=== PATIENT | male | born 1950 | race Caucasian/White ===

== ENCOUNTER → 2016-07-08 | Outpatient (CLI) | payer OTHER ==
[~2016-07-08] MED LIST: ALBUAER2 INH; ALLDSR60 PO; ATV1 PO; BENA10TA10 PO; BUPR-83 PO; CITRUCEL PO; DRV100 PO; FLVHFA110 INH; GABA-113 PO; NAPR-1169 PO; PRLSR20 PO; SAVELLA PO; SIMV10TA2 PO; [UNRECOGNIZED DRUG - CODE] PO
== END | disposition home or self-care (01) ==
LOC: C.CPL 11:30
DX: Z01.810 Encounter for preprocedural cardiovascular examination (principal)

== ENCOUNTER 2024-10-08 05:21 | Inpatient (IN) ==
--- NOTE | 2024-10-08 05:32 | Emergency Department Note ---
Impression & Plan Falls, Confusion, Abrasion of leg, Rhabdomyolysis ED Provider Note Provider: Julien Badillo MD CHIEF COMPLAINT: Falls, confusion, fever HISTORY OF PRESENT ILLNESS: Patient is a 79-year-old gentleman presenting via ambulance from home. Evidently has been more confused found to have a fever this morning. Has had multiple falls last several days but no reported significant injuries. Patient voices that his thinks he may have a urinary tract infection and has had burning and frequency here. Is not on blood thinners. Feels quite weak. States he feels like he needs to urinate and when he stands he falls. No history of UTIs. Reports a little bit of back pain but has chronic back pain and a TENS unit. Denies injury to extremities or chest pain or significant headache. He acknowledges feeling somewhat confused. Received 4 Zofran, 1 g of IV Tylenol, and 500 mL of normal saline prior to arrival for EMS. Was febrile for EMS at 101.7 Fahrenheit. EMS noted him saturating in the low 90s and placed on 2 L of oxygen by is not normally on oxygen. Denies shortness of breath to me. Patient does report some sinus congestion. PAST MEDICAL HISTORY: As noted above MEDICATIONS: Reviewed, no anticoagulants SOCIAL HISTORY: and lives at home PHYSICAL EXAM: GENERAL: alert and oriented in no acute distress on stretcher Head: normocephalic and atraumatic EYES: No injection, discharge or icterus. PERRL, EOMI. NECK: Trachea midline. Supple without midline cervical tenderness ENT: Mucous membranes pink and moist. LUNGS: Airway patent. No retractions. Breath sounds clear with good air entry bilaterally. HEART: Regular rate and rhythm. No chest wall tenderness ABDOMEN: Soft and non-tender, without guarding or rebound. Stable pelvis. SKIN: Acyanotic, warm, dry, without rashes EXTREMITIES: Without swelling, tenderness or deformity except for small abrasion to the right lower leg approximately centimeter in size with active bleeding or tenderness. Soft bilateral calves. No significant knee or ankle tenderness bilaterally. NEUROLOGICAL: No focal deficits. No aphasia. No facial droop or slurred speech. Normal strength and tone in the extremities. Sensation to gross touch normal. EK bpm. Normal sinus rhythm. No PVC or PAC. No acute ST segment elevation or depression with QTc of 420. CONTINUOUS CARDIAC MONITORING: was ordered and showed a heart rate of 90s to 100s bpm in normal sinus rhythm GCS 15. Patient's laboratory studies and imaging reviewed. Differential includes traumatic injury, fracture dislocation, cranial bleed, internal bleeding, viral syndrome, otitis, pharyngitis, pneumonia, influenza, meningitis, urinary tract infection, sepsis, bacteremia, as well as other pathologies. IMPRESSION/MEDICAL DECISION MAKING: Patient febrile upon arrival. ATLS primary and secondary survey completed. Multiple falls over the last day or so and generally weak but nonfocal on exam. Has been having incontinence as well as ambulatory difficulty. Sent for trauma scans given the multiple falls although do not see evidence of significant trauma on exam. There is a small abrasion to the right lower leg without active bleeding or foreign body. Grossly neurologically intact denies any numbness or tingling does not seem to have significant focal weakness and no symptoms reported in the lower extremities. History of chronic back issues. Lactate and culture ordered. UA ordered given history and concern for UTI. Given a gentle IV Zofran here as well as a liter of normal saline. Does not seem to have meningismus on exam and lower suspicion for [employer] infection at this time. Is febrile upon arrival but decreasing from EMS report he did receive IV Tylenol for them just prior to arrival. Lactate here normal at 1.9. White blood cell count of 7.49. No anemia of significance. No critical electrolyte abnormalities although magnesium was mildly low. IV magnesium ordered. No significant renal dysfunction. No significant transaminitis. Procalcitonin 0.13. Troponin normal at 9. Respiratory viral panel completed given report of some sinus congestion. Straight cath obtained urine as he is having difficulty going in about 600 cc was obtained. He will need to be monitor for any recurrence/reaccumulation/possible retention. Anaplasmosis smear sent for completeness. Slight CK elevation likely from his falls and mild rhabdo and has received a liter and a half of IV fluid. CT head cervical spine per radiology medication cranial abnormality, fracture, or dislocation. CT chest abdomen pelvis per radiology without evidence of pneumonia, pneumothorax, rib fracture, intra-abdominal/pelvic bleeding, hydronephrosis, or obstructive findings. Updated patient as well as his with findings. Recommend further care here at the hospital. Covered empirically with cefepime and doxycycline. Hospitalist team was contacted. DIAGNOSIS: Falls, leg abrasion, confusion, rhabdomyolysis DISPOSITION: Hospitalist will evaluate Patient was agreeable with this plan. Past Med/Surg History Problem List (Updated 10/08/24 @ 07:45 by Julien Badillo M.D.) Rhabdomyolysis (Acute) Abrasion of leg (Acute) Confusion (Acute) Falls (Acute) History of diverticulosis History of squamous cell carcinoma in situ of skin History of basal cell carcinoma Anxiety and depression GERD (gastroesophageal reflux disease) Arthritis Hyperlipidemia Hypertension Folliculitis Pruritus Surgical History (Updated 01/19/20 @ 10:00 by Maryana Coy RN) H/O colonoscopy Status post Mohs surgery Family History (Updated 01/19/20 @ 10:01 by Maryana Coy RN) Mother Cancer Father Stroke Social History (Updated 01/19/20 @ 10:01 by Maryana Coy, RN) Smoking Status: Never smoker Do You Dip or Chew Tobacco: No; Hx Alcohol Use: No Hx Substance Use: No Preferred Language: Iranian marital status: How many Children do You have: 7 Feels Safe at Home: Yes Allergies Allergies Allergy/AdvReac Type Severity Reaction Status Date / Time Penicillins Allergy Unknown / Verified 07/06/24 14:40 prochlorperazine Allergy Unknown / Verified 07/06/24 14:40 Home Meds Home Medications Medication Instructions Recorded Confirmed aspirin 81 mg tablet,delayed 81 mg PO DAILY 10/01/18 07/06/24 release (Adult Low Dose Aspirin) celecoxib 200 mg capsule (Celebrex) 200 mg PO DAILY 10/01/18 07/06/24 cholecalciferol (vitamin D3) 50 2,000 units PO DAILY 10/01/18 07/06/24 mcg (2,000 unit) capsule gabapentin 800 mg tablet 800 mg PO QID 10/01/18 07/06/24 atorvastatin 40 mg tablet 40 mg PO DAILY 12/30/19 07/06/24 benazepril 20 mg tablet 20 mg PO DAILY 12/30/19 07/06/24 loratadine 10 mg tablet (Claritin) 10 mg PO DAILY 12/30/19 07/06/24 omeprazole 40 mg capsule,delayed 40 mg PO DAILYBB 12/30/19 07/06/24 release memantine 10 mg tablet 10 mg PO 12/06/21 07/06/24 triazolam 0.25 mg tablet 0.5 mg PO UD PRN Sleep 01/06/23 07/06/24 duloxetine 60 mg capsule,delayed 60 mg PO DAILY 05/29/23 07/06/24 release (Cymbalta) Previous Rx's Medication Instructions Recorded imiquimod 5 % topical cream packet 1 applic topical .COMPLEX #24 ea 10/01/24 Results & Data (ED) Vital Signs Vital Signs - 24 hr 10/08/24 05:15 10/08/24 05:28 10/08/24 05:32 Temperature 38.1 C H 38.1 C H Temperature Source Oral Oral Pulse Rate 93 H 101 H Pulse Rate [Apical] 82 Pulse Rhythm Regular Pulse Rhythm [Apical] Regular Pulse Strength Normal Pulse Strength [Apical] Normal Respiratory Rate 17 18 Respiratory Effort / Characteristics Non-Labored Non-Labored Respiratory Depth Normal Normal Respiratory Pattern Regular Regular Blood Pressure 100/79 Blood Pressure [Left Arm] 100/79 Blood Pressure Mean 86 Blood Pressure Mean [Left Arm] 86 Blood Pressure Position Sitting Blood Pressure Position [Left Arm] Sitting Pulse Oximetry 97 93 Oxygen Delivery Method Nasal Cannula Nasal Cannula Oxygen Flow Rate 2 2 Sepsis Recent Fever Within 48 Hours Yes Sepsis New/Unexplained Change in Mental Status Yes Sepsis Action Taken by Nursing Physician Notified 10/08/24 05:51 10/08/24 06:15 10/08/24 07:00 Temperature Temperature Source Pulse Rate 100 H Pulse Rate [Apical] 85 85 Pulse Rhythm Pulse Rhythm [Apical] Regular Pulse Strength Pulse Strength [Apical] Normal Respiratory Rate 19 17 19 Respiratory Effort / Characteristics Non-Labored Non-Labored Respiratory Depth Normal Normal Respiratory Pattern Regular Blood Pressure Blood Pressure [Left Arm] 146/89 H 159/94 H Blood Pressure Mean Blood Pressure Mean [Left Arm] 108 115 Blood Pressure Position Blood Pressure Position [Left Arm] Lying Pulse Oximetry 97 97 96 Oxygen Delivery Method Nasal Cannula Nasal Cannula Nasal Cannula Oxygen Flow Rate 2 2 2 Sepsis Recent Fever Within 48 Hours Sepsis New/Unexplained Change in Mental Status Sepsis Action Taken by Nursing Laboratory Data 10/08/24 05:34 10/08/24 05:34 Lab Results 10/08/24 10/08/24 10/08/24 Range/Units 05:34 05:41 06:29 WBC 7.49 (4.8-10.8) K/ul RBC 4.74 (4.70-6.10) M/uL Hgb 14.0 (14.0-18.0) g/dl POC Hgb 13.9 L (14.0-18.0) g/dl Hct 40.8 L (42.0-52.0) % POC Hct 41 L (42-52) % MCV 86.1 (80.0-100.0) fL MCH 29.5 (25.0-34.0) pg MCHC 34.3 (32.0-36.0) g/dL RDW Std Deviation 40.3 (36.4-46.3) fL RDW Coeff of Néstor 13.0 (11.5-14.5) % Plt Count 151 (130-400) K/uL MPV 9.6 (9.4-12.4) fL Immature Gran % (Auto) 0.3 % Neut % (Auto) 76.1 % Lymph % (Auto) 12.8 % Cedar % (Auto) 10.4 % Eos % (Auto) 0.3 % Baso % (Auto) 0.1 % Neut # (Auto) 5.70 (1.40-6.50) K/uL Lymph # (Auto) 0.96 L (1.20-3.40) K/uL Cedar # (Auto) 0.78 H (0.11-0.59) K/uL Eos # (Auto) 0.02 (0.00-0.50) K/uL Baso # (Auto) 0.01 (0.00-0.20) K/uL Immature Gran # (Auto) 0.02 (0.01-0.20) K/uL POC Sodium 136 (135-144) mmol/L Sodium 135 L (136-145) mmol/L POC Potassium 3.4 (3.3-5.0) mmol/L Potassium 3.5 (3.5-5.1) mmol/L POC Chloride 101 (101-112) mmol/L Chloride 103 (98-107) mmol/L Carbon Dioxide 24 (21-32) mmol/L POC Total CO2 22 L (24-31) mmol/L Anion Gap 8 (3-11) POC Anion Gap 16.0 (16-25) mmol/L POC BUN 6 L (7-18) mg/dl BUN 8 (6-23) mg/dl Creatinine 0.95 (0.6-1.4) mg/dl POC Creatinine 1.0 (0.6-1.3) mg/dl Est Cr Clr Drug Dosing 92.5 ml/min eGFR 85.57 BUN/Creatinine Ratio 8.4 L (10-20) Glucose 121 H (70-99(Fasting)) mg/dl POC Glucose (other) 122 H (70-99) mg/dl Lactate 1.9 (0.4-2.0) mmol/L Calcium 8.7 (8.6-10.3) mg/dl POC Ioniz Calcium Ezekiel 1.13 (1.12-1.32) mmol/l Magnesium 1.6 L (1.7-2.4) mg/dl Total Bilirubin 0.5 (0.2-1.0) mg/dl AST 42 H (13-39) U/L ALT 33 (7-52) U/L Alkaline Phosphatase 53 (34-104) U/L Total Creatine Kinase 974 H (30-223) U/L Troponin I High Sens 9.0 (0-20) pg/ml Total Protein 6.2 (6.0-8.3) gm/dl Albumin 4.0 (3.4-5.0) gm/dl Globulin 2.2 L (2.5-4.0) gm/dl Albumin/Globulin Ratio 1.8 (0.9-2) Lipase 12 (11-82) U/L Procalcitonin 0.13 (0-0.5) ng/ml Urine Color Yellow Urine Appearance Clear (Clear) Urine pH 7.0 (4.5-7.5) Ur Specific [place] 1.036 H (1.000-1.030) Urine Protein Negative (Negative) Urine Glucose (UA) Negative (Negative) Urine Ketones Negative (Negative) Urine Blood Negative (Negative) Urine Nitrite Negative (Negative) Urine Bilirubin Negative (Negative) Urine Urobilinogen Negative (Negative) Ur Leukocyte Esterase Negative (Negative) Urine Comment Administered Medications Discontinued Medications Sodium Chloride (Nss) 1,000 mls @ 999 mls/hr IV .Q1H1M ONE Stop: 10/08/24 06:25 Last Infusion: 10/08/24 06:45 Dose: Infused Documented By: Admin: 10/08/24 05:40 Dose: 999 mls/hr Documented By: JAMES Magnesium Sulfate/Dextrose (Magnesium Sulfate / D5w) 1 gm in 100 mls @ 200 mls/hr IV Q30M ANA Stop: 10/08/24 07:29 Last Admin: 10/08/24 06:55 Dose: 200 mls/hr Documented By: Infusion: 10/08/24 06:54 Dose: Infused Documented By: Admin: 10/08/24 06:25 Dose: 200 mls/hr Documented By: TERESA Ioversol (Optiray 320 100ml) 100 ml IV ONCE ONE Stop: 10/08/24 06:07 Last Admin: 10/08/24 06:06 Dose: 93 ml Documented By: ZULY Ondansetron HCl (Ondansetron Inj 2 Mg/Ml 2 Ml Vial) 4 mg IV NOW STA Stop: 10/08/24 05:32 Last Admin: 10/08/24 05:40 Dose: 4 mg Documented By: JAMES Imaging Data Radiologist's Impression: Abdomen/Pelvis CT 10/08/24 05:23 EXAM: CT abd pelvis IV con only CLINICAL HISTORY: fever, falls TECHNIQUE: Contiguous axial images were obtained from the level of the diaphragm to the pubic symphysis with intravenous contrast. Coronal and sagittal reconstructions were likewise performed and indicated to increase the sensitivity for detecting clinically relevant pathology. If IV contrast material had not been administered, the likelihood of detecting abnormalities relevant to the patient's condition would have been substantially decreased. CT scan was performed according to ALARA (as low as reasonable achievable). COMPARISON: None. FINDINGS: The visualized lung bases are clear. The liver is normal in size and reduced attenuation. No focal liver lesions are seen. There is no intra or extrahepatic biliary ductal dilatation. Hepatic vasculature is patent. The gallbladder is present. The spleen, pancreas, and adrenal glands are unremarkable. The kidneys are normal in size and attenuation. There is no hydronephrosis or perinephric fat stranding. No renal calculi or renal masses are identified. The ureters are normal in caliber and no ureteral calculi are seen. The bladder is normal in contour. Pelvic viscera are unremarkable. No focal or diffuse bowel wall thickening or evidence of bowel obstruction is identified. The appendix is visualized in the right lower quadrant and appears within normal limits. Abdominal and pelvic vasculature is patent. No adenopathy or fluid collections are seen. No aggressive appearing osseous lesions are identified. Multiple small uncomplicated descending and sigmoid colonic diverticulosis Diffuse atherosclerotic calcification is noted involving aorta iliac arteries. IMPRESSION: Hepatic steatosis. Multiple small uncomplicated descending and sigmoid colonic diverticulosis Diffuse atherosclerotic calcification is noted involving aorta iliac arteries. Electronically signed by Willie Zamora 10-08-2024 07:[address] 10/08/24 05:23 EXAM: CT cervical spine wo con CLINICAL HISTORY: falls TECHNIQUE: Computed tomography of the cervical spine performed without intravenous contrast. Contiguous axial images were obtained from the skull base to T2, with sagittal and coronal reformatted images reconstructed from the axial data. CT scan was performed according to ALARA (as low as reasonable achievable). COMPARISON: none FINDINGS: The normal cervical lordotic curvature is lost. Degenerative changes in the form of marginal osteophytes in cervical spine. Cervical vertebral bodies are normal in height and alignment, with no evidence of fracture or subluxation. Lateral masses of C1 are symmetrical, and the dens is intact. Prevertebral soft tissues are not widened. The remaining suprahyoid and infrahyoid soft tissues in the neck are unremarkable. C2-C3: No disc bulge, mass effect on the cord or neuroforaminal narrowing. C3-C4: No disc bulge, mass effect on the cord or neuroforaminal narrowing. C4-C5: No disc bulge, mass effect on the cord or neuroforaminal narrowing. C5-C6: No disc bulge, mass effect on the cord or neuroforaminal narrowing. C6-C7: No disc bulge, mass effect on the cord or neuroforaminal narrowing. C7-T1: No disc bulge, mass effect on the cord or neuroforaminal narrowing. Thyroid gland appears unremarkable. IMPRESSION: 1.No acute fracture or subluxation in the cervical spine 2. Straightening of cervical spine and cervical spondylosis Electronically signed by Willie Zamora 10-08-2024 07:[address] 10/08/24 05:23 EXAM: CT chest diagnostic w con CLINICAL HISTORY: falls, fever TECHNIQUE: Contiguous axial images were obtained from the neck base through the upper abdomen following intravenous administration of contrast material. If IV contrast material had not been administered, the likelihood of detecting abnormalities relevant to the patient's condition would have been substantially decreased. In addition, sagittal and coronal reconstructions were performed. CT scan was performed according to ALARA (as low as reasonable achievable). COMPARISON: None. FINDINGS: Few atelectatic bands are noted involving bilateral lung bases. Rest of lungs are clear, with no focal areas of consolidation. No pulmonary nodules are seen. The central airways are patent. There are no pleural effusions. No pneumothorax is seen. No axillary, hilar, or mediastinal adenopathy is identified. The visualized thyroid is unremarkable. The heart, aorta, and pulmonary arteries are of normal size and configuration. No pericardial effusion is identified. Imaged portions of the upper abdomen are unremarkable. No aggressive appearing osseous lesions are identified. Spinal stimulator noted insitu with lead at the level of T8 and T9 vertebrae IMPRESSION: Few atelectatic bands are noted involving bilateral lung bases. No obvious acute trauma related abnormality is seen. Electronically signed by Willie Zamora 10-08-2024 07:36 AM Chest X-Ray 10/08/24 05:23 EXAM: XR chest 1V portable CLINICAL HISTORY: Fever TECHNIQUE: Radiograph of chest was acquired. COMPARISON: none FINDINGS: The lungs are clear and well-expanded with no pulmonary infiltrate or pleural effusion. The cardiomediastinal silhouette is within normal limits. No acute osseous abnormality. Spinal stimulator insitu in. mid thoracic level IMPRESSION: 1. No acute cardiopulmonary disease. Electronically signed by Willie Zamora 10-08-2024 07:[address] 10/08/24 05:23 EXAM: CT head/brain wo con CLINICAL HISTORY: falls TECHNIQUE: Multiple axial images are obtained from the skull base to the vertex without contrast. CT scan was performed according to ALARA (as low as reasonable achievable). COMPARISON: none FINDINGS: Chronic lacunar infarct in left capsuloganglionic region There is cerebral atrophy. No evidence of space occupying lesion, hemorrhage, edema, mass effect, midline shift, extra axial collection, or hydrocephalus is noted. Basal cisterns are symmetric and normal in size and configuration. There are scattered periventricular hypodensities as can be seen with chronic microvascular ischemic changes. The puente-white matter differentiation is preserved. Visualized paranasal sinuses and mastoid air cells are well aerated. Orbital contents are within normal limits. Bony structures are intact. IMPRESSION: 1. No evidence of acute intracranial abnormality is demonstrated. 2. Chronic microvascular ischemic changes. 3. Cerebral atrophy. 4. Chronic lacunar infarct in left capsuloganglionic region Electronically signed by Willie Zamora 10-08-2024 07:40 AM Discharge Plan Visit Data Chief Complaint: Urinary Symptoms Stated Complaint: Burning Urination, Confusion, Fever, Falls ED Provider: Julien Badillo Discharge Problem: Falls, Confusion, Abrasion of leg, Rhabdomyolysis Patient Disposition: Being Evaluated by Hospitalist Condition: Fair Forms Stand Alone Forms: My [facility] Prescriptions Prescriptions: No Action imiquimod 5 % cream in packet 1 applic topical .COMPLEX Qty: 24 1RF Rx Instructions: 1 applic topically to areas of the face twice weekly as directed.; celecoxib [Celebrex] 200 mg capsule 200 mg PO DAILY gabapentin 800 mg tablet 800 mg PO QID aspirin [Adult Low Dose Aspirin] 81 mg tablet,delayed release (DR/EC) 81 mg PO DAILY cholecalciferol (vitamin D3) 2,000 unit capsule 2,000 units PO DAILY triazolam 0.25 mg tablet 0.5 mg PO UD PRN (Reason: Sleep) memantine 10 mg tablet 10 mg PO duloxetine [Cymbalta] 60 mg capsule,delayed release(DR/EC) 60 mg PO DAILY atorvastatin 40 mg tablet 40 mg PO DAILY omeprazole 40 mg capsule,delayed release(DR/EC) 40 mg PO DAILYBB benazepril 20 mg tablet 20 mg PO DAILY loratadine [Claritin] 10 mg Tablet 10 mg PO DAILY Referrals Referrals: Cindy Schuster MD [Primary Care Provider] -
[2024-10-08] MEDS: ONDANSETRON INJ 2 MG/ML 2 ML VIAL IV STA (05:40)
[2024-10-08] MEDS: SODIUM CHLORIDE 0.9% 1,000 ML IV ONE (05:40)
[2024-10-08 06:00] LABS: Hematocrit (blood only) 40.8 % (42.0-52.0); Hemoglobin 14.0 g/dl (14.0-18.0); Immature Granulocytes # (auto) 0.02 K/uL (0.01-0.20); Immature Granulocytes % (auto) 0.3 %; Mean Corpuscular Hemoglobin 29.5 pg (25.0-34.0); Mean Corpuscular Volume 86.1 fL (80.0-100.0); Platelet Count 151 K/uL (130-400); RDW Standard Deviation 40.3 fL (36.4-46.3); Red Blood Count 4.74 M/uL (4.70-6.10); White Blood Count 7.49 K/ul (4.8-10.8)
[2024-10-08] MEDS: OPTIRAY 320 100ml IV ONE (06:06)
[2024-10-08 06:15] LABS: Alanine Aminotransferase 33.0 U/L (7-52); Albumin Globulin Ratio 1.8 (0.9-2); Alkaline Phosphatase 53.0 U/L (34-104); Anion Gap 8.0 (3-11); Bilirubin,Total 0.5 mg/dl (0.2-1.0); Blood Urea Nitrogen 8.0 mg/dl (6-23); Calcium 8.7 mg/dl (8.6-10.3); Carbon Dioxide 24.0 mmol/L (21-32); Chloride 103.0 mmol/L (98-107); Creatinine Clr Calc Pharmacy 92.5 ml/min; Globulin 2.2 gm/dl (2.5-4.0); Glucose 121.0 mg/dl (70-99(Fasting)); Magnesium 1.6 mg/dl (1.7-2.4); Potassium 3.5 mmol/L (3.5-5.1); Sodium 135.0 mmol/L (136-145); Total Protein 6.2 gm/dl (6.0-8.3)
[2024-10-08] MEDS: MAGNESIUM SULFATE / D5W 1 GM/100 ML BAG IV SCH (06:25)
--- NOTE | 2024-10-08 07:37 | CT Scan Report ---
EXAM: CT chest diagnostic w con CLINICAL HISTORY: falls, fever TECHNIQUE: Contiguous axial images were obtained from the neck base through the upper abdomen following intravenous administration of contrast material. If IV contrast material had not been administered, the likelihood of detecting abnormalities relevant to the patient's condition would have been substantially decreased. In addition, sagittal and coronal reconstructions were performed. CT scan was performed according to ALARA (as low as reasonable achievable). COMPARISON: None. FINDINGS: Few atelectatic bands are noted involving bilateral lung bases. Rest of lungs are clear, with no focal areas of consolidation. No pulmonary nodules are seen. The central airways are patent. There are no pleural effusions. No pneumothorax is seen. No axillary, hilar, or mediastinal adenopathy is identified. The visualized thyroid is unremarkable. The heart, aorta, and pulmonary arteries are of normal size and configuration. No pericardial effusion is identified. Imaged portions of the upper abdomen are unremarkable. No aggressive appearing osseous lesions are identified. Spinal stimulator noted insitu with lead at the level of T8 and T9 vertebrae IMPRESSION: Few atelectatic bands are noted involving bilateral lung bases. No obvious acute trauma related abnormality is seen. Electronically signed by Willie Zamora 10-08-2024 07:36 AM
--- NOTE | 2024-10-08 07:39 | CT Scan Report ---
EXAM: CT abd pelvis IV con only CLINICAL HISTORY: fever, falls TECHNIQUE: Contiguous axial images were obtained from the level of the diaphragm to the pubic symphysis with intravenous contrast. Coronal and sagittal reconstructions were likewise performed and indicated to increase the sensitivity for detecting clinically relevant pathology. If IV contrast material had not been administered, the likelihood of detecting abnormalities relevant to the patient's condition would have been substantially decreased. CT scan was performed according to ALARA (as low as reasonable achievable). COMPARISON: None. FINDINGS: The visualized lung bases are clear. The liver is normal in size and reduced attenuation. No focal liver lesions are seen. There is no intra or extrahepatic biliary ductal dilatation. Hepatic vasculature is patent. The gallbladder is present. The spleen, pancreas, and adrenal glands are unremarkable. The kidneys are normal in size and attenuation. There is no hydronephrosis or perinephric fat stranding. No renal calculi or renal masses are identified. The ureters are normal in caliber and no ureteral calculi are seen. The bladder is normal in contour. Pelvic viscera are unremarkable. No focal or diffuse bowel wall thickening or evidence of bowel obstruction is identified. The appendix is visualized in the right lower quadrant and appears within normal limits. Abdominal and pelvic vasculature is patent. No adenopathy or fluid collections are seen. No aggressive appearing osseous lesions are identified. Multiple small uncomplicated descending and sigmoid colonic diverticulosis Diffuse atherosclerotic calcification is noted involving aorta iliac arteries. IMPRESSION: Hepatic steatosis. Multiple small uncomplicated descending and sigmoid colonic diverticulosis Diffuse atherosclerotic calcification is noted involving aorta iliac arteries. Electronically signed by Willie Zamora 10-08-2024 07:39 AM
[2024-10-08 07:40] LABS: Creatine Kinase 974.0 U/L (30-223); Lipase 12.0 U/L (11-82)
--- NOTE | 2024-10-08 07:41 | CT Scan Report ---
EXAM: CT head/brain wo con CLINICAL HISTORY: falls TECHNIQUE: Multiple axial images are obtained from the skull base to the vertex without contrast. CT scan was performed according to ALARA (as low as reasonable achievable). COMPARISON: none FINDINGS: Chronic lacunar infarct in left capsuloganglionic region There is cerebral atrophy. No evidence of space occupying lesion, hemorrhage, edema, mass effect, midline shift, extra axial collection, or hydrocephalus is noted. Basal cisterns are symmetric and normal in size and configuration. There are scattered periventricular hypodensities as can be seen with chronic microvascular ischemic changes. The puente-white matter differentiation is preserved. Visualized paranasal sinuses and mastoid air cells are well aerated. Orbital contents are within normal limits. Bony structures are intact. IMPRESSION: 1. No evidence of acute intracranial abnormality is demonstrated. 2. Chronic microvascular ischemic changes. 3. Cerebral atrophy. 4. Chronic lacunar infarct in left capsuloganglionic region Electronically signed by Willie Zamora 10-08-2024 07:40 AM
[2024-10-08 07:42] LABS: Chlamydia pneumoniae PCR Not Detected (NotDetected); Coronavirus 229E PCR Not Detected (NotDetected); Coronavirus CoV-2 (COVID19)PCR DETECTED (NotDetected); Coronavirus HKU1 PCR Not Detected (NotDetected); Coronavirus NL63 PCR Not Detected (NotDetected); Coronavirus OC43PCR Not Detected (NotDetected); Human Metapneumovirus PCR Not Detected (NotDetected); Parainfluenza Virus 1 PCR Not Detected (NotDetected); Parainfluenza Virus 2 PCR Not Detected (NotDetected); Parainfluenza Virus 3 PCR Not Detected (NotDetected); Parainfluenza Virus 4 PCR Not Detected (NotDetected); Respiratory Syncytial VirusPCR Not Detected (NotDetected); Rhinovirus/Enterovirus PCR Not Detected (NotDetected)
--- NOTE | 2024-10-08 07:43 | CT Scan Report ---
EXAM: CT cervical spine wo con CLINICAL HISTORY: falls TECHNIQUE: Computed tomography of the cervical spine performed without intravenous contrast. Contiguous axial images were obtained from the skull base to T2, with sagittal and coronal reformatted images reconstructed from the axial data. CT scan was performed according to ALARA (as low as reasonable achievable). COMPARISON: none FINDINGS: The normal cervical lordotic curvature is lost. Degenerative changes in the form of marginal osteophytes in cervical spine. Cervical vertebral bodies are normal in height and alignment, with no evidence of fracture or subluxation. Lateral masses of C1 are symmetrical, and the dens is intact. Prevertebral soft tissues are not widened. The remaining suprahyoid and infrahyoid soft tissues in the neck are unremarkable. C2-C3: No disc bulge, mass effect on the cord or neuroforaminal narrowing. C3-C4: No disc bulge, mass effect on the cord or neuroforaminal narrowing. C4-C5: No disc bulge, mass effect on the cord or neuroforaminal narrowing. C5-C6: No disc bulge, mass effect on the cord or neuroforaminal narrowing. C6-C7: No disc bulge, mass effect on the cord or neuroforaminal narrowing. C7-T1: No disc bulge, mass effect on the cord or neuroforaminal narrowing. Thyroid gland appears unremarkable. IMPRESSION: 1.No acute fracture or subluxation in the cervical spine 2. Straightening of cervical spine and cervical spondylosis Electronically signed by Willie Zamora 10-08-2024 07:43 AM
[2024-10-08 07:44] LABS: Appearance Urine Clear (Clear); Glucose Urine UA Negative (Negative)
--- NOTE | 2024-10-08 07:46 | XRay Report ---
EXAM: XR chest 1V portable CLINICAL HISTORY: Fever TECHNIQUE: Radiograph of chest was acquired. COMPARISON: none FINDINGS: The lungs are clear and well-expanded with no pulmonary infiltrate or pleural effusion. The cardiomediastinal silhouette is within normal limits. No acute osseous abnormality. Spinal stimulator insitu in. mid thoracic level IMPRESSION: 1. No acute cardiopulmonary disease. Electronically signed by Willie Zamora 10-08-2024 07:45 AM
[2024-10-08] MEDS: DOXYCYCLINE HYCLATE 100 MG CAP PO STA (08:05)
[2024-10-08] MEDS: CEFEPIME 2000MG 2,000 MG/20 ML SYR IV STA (08:05)
[2024-10-08 10:07] LABS: Polychromasia 1+
--- NOTE | 2024-10-08 10:31 | History & Physical Report ---
Date of Service October 08, 2024 Assessment & Plan (1) COVID-19 virus infection: Plan: Admit to Med/Surg Patient presenting from home for evaluation of fever, falls, and confusion. In the ED, tested + COVID 19. Was on 2L at the time of my exam however I placed the patient on room air and he remained > 94% No infiltrate on CXR Given patient's risk factors, will start Remdesivir. Discussed with patient who is agreeable. Will hold on Dexamethasone for now (2) Metabolic encephalopathy: Plan: Due to COVID [address] negative for acute findings Seems to be close to baseline mental status PT/OT (3) Rhabdomyolysis: Plan: CPK 974 IVF, trend CPK level Renal functions normal. AST mildly elevated 42, other LFTs unremarkable (4) Fever: Plan: Likely due to COVID 19 infection UA negative Blood cultures pending Lyme negative Anaplasma/Babesia smear negative, PCR pending s/p Cefepime and Doxy in the ED, will hold on further antibiotics for now (5) History of CVA (cerebrovascular accident): Plan: Head shows evidence of chronic lacunar infarct - patient denies known prior history of CVA Continue CHUCK BONER ASA, holding statin due to mild rhabdo/remdesvir (6) Hypertension: Plan: Continue CHUCK BONER benazepril (7) Chronic back pain: (8) Peripheral nerve neurostimulator device in situ: Plan: Continue CHUCK BONER duloxetine, gabapentin, oxcarbazepine (9) GERD (gastroesophageal reflux disease): Plan: Continue PPI DVT PROPHYLAXIS SQ Lovenox Patient seen in collaboration with Dr. Sullivan. I spent a total of 75 minutes coordinating, documenting, and providing care for this patient excluding time spent in the performance of separately billed services. This included personally reviewing all current laboratories and imagi ng studies, medication reconciliation, outpatient chart review, and discussion with specialists. History of Present Illness Chief Complaint: Fever, Confusion, Falls Primary Care Provider: Cindy Schuster MD 73 year old male with PMH HTN, chronic back pain with neurostimulator in place, GERD, anxiety, depression, essential tremor, and other problems listed below who presents to the ED for evaluation of fever, confusion, and recurrent falls. Patient's is at the bedside who has history. Patient started to develop symptoms a couple of days ago. Reports cold-like symptoms with nasal congestion, sore throat, productive cough. reports patient has been agitated and confused and very weak and has had several falls. EMS was called at this morning and patient was found to be febrile. Patient was brought to the ED for further evaluation. Patient reports a poor appetite however denies abdominal pain, nausea, vomiting, diarrhea. No urinary symptoms. Denies chest pain, shortness of breath, lightheadedness, dizziness, diaphoresis, syncopal event. No recent travel or sick contacts. In the ED, patient is febrile at 38.1 and tested positive for COVID-19. CPK 974. Patient was on 2 L at the time my exam however I placed him on room air and he remained > 94% on room air. Patient was given cefepime, doxycycline, magnesium replacement, IVF, IV Zofran. Allergies Allergy/AdvReac Type Severity Reaction Status Date / Time Penicillins Allergy Unknown / Verified 07/06/24 14:40 prochlorperazine Allergy Unknown / Verified 07/06/24 14:40 Home Medications Medication Instructions Recorded Confirmed Type aspirin 81 mg tablet,delayed 81 mg PO DAILY 10/01/18 10/08/24 History release (Adult Low Dose Aspirin) cholecalciferol (vitamin D3) 50 2,000 units PO DAILY 10/01/18 10/08/24 History mcg (2,000 unit) capsule gabapentin 800 mg tablet 800 mg PO QID 10/01/18 10/08/24 History atorvastatin 40 mg tablet 40 mg PO DAILY 12/30/19 10/08/24 History benazepril 20 mg tablet 20 mg PO DAILY 12/30/19 10/08/24 History loratadine 10 mg tablet (Claritin) 10 mg PO DAILY 12/30/19 10/08/24 History omeprazole 40 mg capsule,delayed 40 mg PO BID 12/30/19 10/08/24 History release memantine 10 mg tablet 10 mg PO BID 12/06/21 10/08/24 History triazolam 0.25 mg tablet 0.5 mg PO UD PRN Sleep 01/06/23 10/08/24 History duloxetine 60 mg capsule,delayed 60 mg PO DAILY 05/29/23 10/08/24 History release (Cymbalta) fluticasone propionate 50 1 spray intranasal DIRECTED 10/08/24 10/08/24 History mcg/actuation nasal spray,suspension imiquimod 5 % topical cream packet 1 applic topical UD 10/08/24 10/08/24 History oxcarbazepine 300 mg tablet 300 mg PO BID 10/08/24 10/08/24 History propranolol 10 mg tablet 10 mg PO DAILY 10/08/24 10/08/24 History Past Med/Surg History Problem List (Updated 10/08/24 @ 10:36 by SOSA Mayo) Fever Metabolic encephalopathy COVID-19 virus infection Rhabdomyolysis (Acute) History of diverticulosis History of squamous cell carcinoma in situ of skin History of basal cell carcinoma Anxiety and depression GERD (gastroesophageal reflux disease) Arthritis Hyperlipidemia Folliculitis Pruritus Medical History (Updated 10/08/24 @ 10:36 by SOSA Mayo) History of CVA (cerebrovascular accident) Hypertension Peripheral nerve neurostimulator device in situ Chronic back pain Surgical History (Updated 01/19/20 @ 10:00 by Maryana Coy, RN) H/O colonoscopy Status post Mohs surgery Family History (Updated 01/19/20 @ 10:01 by Maryana Coy, RN) Mother Cancer Father Stroke Social History (Updated 01/19/20 @ 10:01 by Maryana Coy, RN) Smoking Status: Never smoker Do You Dip or Chew Tobacco: No; Hx Alcohol Use: No Hx Substance Use: No Preferred Language: [place] marital status: How many Children do You have: 7 Feels Safe at Home: Yes Physical Exam Constitutional: WD/WN, vitals as above + ill appearing; no acute distress Respiratory: normal respiratory effort, lungs clear to auscultation Cardiovascular: Rate/Rhythm: regular rate and regular rhythm Vessels: normal peripheral pulses Extremities: no edema Gastrointestinal (Abdomen): Percussion/Palpation: abdomen soft; abdomen nontender Skin: no rashes, warm and dry Neurologic: no focal motor deficits Psychiatric: A+Ox3, euthymic affect Results & Data Results & Data Vital Signs (Past 12 Hours) Vital Signs Temp Pulse Pulse Resp BP BP Pulse Ox 10/08/24 09:38 82 10/08/24 07:00 85 19 159/94 H 96 10/08/24 06:15 85 17 146/89 H 97 10/08/24 05:51 100 H 19 97 10/08/24 05:32 38.1 C H 101 H 18 100/79 93 10/08/24 05:28 93 H 10/08/24 05:15 38.1 C H 82 17 100/79 97 O2 Del Method O2 Flow Rate 10/08/24 09:38 10/08/24 07:00 Nasal Cannula 2 10/08/24 06:15 Nasal Cannula 2 10/08/24 05:51 Nasal Cannula 2 10/08/24 05:32 Nasal Cannula 2 10/08/24 05:28 10/08/24 05:15 Nasal Cannula 2 Laboratory Results Short CBC 10/08/24 Range/Units 05:34 WBC 7.49 (4.8-10.8) K/ul Hgb 14.0 (14.0-18.0) g/dl Hct 40.8 L (42.0-52.0) % Plt Count 151 (130-400) K/uL BMP 10/08/24 05:34 Sodium 135 L Potassium 3.5 Chloride 103 Carbon Dioxide 24 BUN 8 Creatinine 0.95 Glucose 121 H Calcium 8.7 Cardiac Enzymes 10/08/24 Range/Units 05:34 Total Creatine Kinase 974 H (30-223) U/L Liver Function 10/08/24 Range/Units 05:34 Total Bilirubin 0.5 (0.2-1.0) mg/dl AST 42 H (13-39) U/L ALT 33 (7-52) U/L Alkaline Phosphatase 53 (34-104) U/L Albumin 4.0 (3.4-5.0) gm/dl Urine 10/08/24 Range/Units 06:29 Urine Color Yellow Urine Appearance Clear (Clear) Urine pH 7.0 (4.5-7.5) Ur Specific [place] 1.036 H (1.000-1.030) Urine Protein Negative (Negative) Urine Glucose (UA) Negative (Negative) Diagnostic Findings Abdomen/Pelvis CT 10/08/24 05:23 EXAM: CT abd pelvis IV con only CLINICAL HISTORY: fever, falls TECHNIQUE: Contiguous axial images were obtained from the level of the diaphragm to the pubic symphysis with intravenous contrast. Coronal and sagittal reconstructions were likewise performed and indicated to increase the sensitivity for detecting clinically relevant pathology. If IV contrast material had not been administered, the likelihood of detecting abnormalities relevant to the patient's condition would have been substantially decreased. CT scan was performed according to ALARA (as low as reasonable achievable). COMPARISON: None. FINDINGS: The visualized lung bases are clear. The liver is normal in size and reduced attenuation. No focal liver lesions are seen. There is no intra or extrahepatic biliary ductal dilatation. Hepatic vasculature is patent. The gallbladder is present. The spleen, pancreas, and adrenal glands are unremarkable. The kidneys are normal in size and attenuation. There is no hydronephrosis or perinephric fat stranding. No renal calculi or renal masses are identified. The ureters are normal in caliber and no ureteral calculi are seen. The bladder is normal in contour. Pelvic viscera are unremarkable. No focal or diffuse bowel wall thickening or evidence of bowel obstruction is identified. The appendix is visualized in the right lower quadrant and appears within normal limits. Abdominal and pelvic vasculature is patent. No adenopathy or fluid collections are seen. No aggressive appearing osseous lesions are identified. Multiple small uncomplicated descending and sigmoid colonic diverticulosis Diffuse atherosclerotic calcification is noted involving aorta iliac arteries. IMPRESSION: Hepatic steatosis. Multiple small uncomplicated descending and sigmoid colonic diverticulosis Diffuse atherosclerotic calcification is noted involving aorta iliac arteries. Electronically signed by Willie Zamora 10-08-2024 07:[address] 10/08/24 05:23 EXAM: CT cervical spine wo con CLINICAL HISTORY: falls TECHNIQUE: Computed tomography of the cervical spine performed without intravenous contrast. Contiguous axial images were obtained from the skull base to T2, with sagittal and coronal reformatted images reconstructed from the axial data. CT scan was performed according to ALARA (as low as reasonable achievable). COMPARISON: none FINDINGS: The normal cervical lordotic curvature is lost. Degenerative changes in the form of marginal osteophytes in cervical spine. Cervical vertebral bodies are normal in height and alignment, with no evidence of fracture or subluxation. Lateral masses of C1 are symmetrical, and the dens is intact. Prevertebral soft tissues are not widened. The remaining suprahyoid and infrahyoid soft tissues in the neck are unremarkable. C2-C3: No disc bulge, mass effect on the cord or neuroforaminal narrowing. C3-C4: No disc bulge, mass effect on the cord or neuroforaminal narrowing. C4-C5: No disc bulge, mass effect on the cord or neuroforaminal narrowing. C5-C6: No disc bulge, mass effect on the cord or neuroforaminal narrowing. C6-C7: No disc bulge, mass effect on the cord or neuroforaminal narrowing. C7-T1: No disc bulge, mass effect on the cord or neuroforaminal narrowing. Thyroid gland appears unremarkable. IMPRESSION: 1.No acute fracture or subluxation in the cervical spine 2. Straightening of cervical spine and cervical spondylosis Electronically signed by Willie Zamora 10-08-2024 07:[address] 10/08/24 05:23 EXAM: CT chest diagnostic w con CLINICAL HISTORY: falls, fever TECHNIQUE: Contiguous axial images were obtained from the neck base through the upper abdomen following intravenous administration of contrast material. If IV contrast material had not been administered, the likelihood of detecting abnormalities relevant to the patient's condition would have been substantially decreased. In addition, sagittal and coronal reconstructions were performed. CT scan was performed according to ALARA (as low as reasonable achievable). COMPARISON: None. FINDINGS: Few atelectatic bands are noted involving bilateral lung bases. Rest of lungs are clear, with no focal areas of consolidation. No pulmonary nodules are seen. The central airways are patent. There are no pleural effusions. No pneumothorax is seen. No axillary, hilar, or mediastinal adenopathy is identified. The visualized thyroid is unremarkable. The heart, aorta, and pulmonary arteries are of normal size and configuration. No pericardial effusion is identified. Imaged portions of the upper abdomen are unremarkable. No aggressive appearing osseous lesions are identified. Spinal stimulator noted insitu with lead at the level of T8 and T9 vertebrae IMPRESSION: Few atelectatic bands are noted involving bilateral lung bases. No obvious acute trauma related abnormality is seen. Electronically signed by Willie Zamora 10-08-2024 07:36 AM Chest X-Ray 10/08/24 05:23 EXAM: XR chest 1V portable CLINICAL HISTORY: Fever TECHNIQUE: Radiograph of chest was acquired. COMPARISON: none FINDINGS: The lungs are clear and well-expanded with no pulmonary infiltrate or pleural effusion. The cardiomediastinal silhouette is within normal limits. No acute osseous abnormality. Spinal stimulator insitu in. mid thoracic level IMPRESSION: 1. No acute cardiopulmonary disease. Electronically signed by Willie Zamora 10-08-2024 07:[address] 10/08/24 05:23 EXAM: CT head/brain wo con CLINICAL HISTORY: falls TECHNIQUE: Multiple axial images are obtained from the skull base to the vertex without contrast. CT scan was performed according to ALARA (as low as reasonable achievable). COMPARISON: none FINDINGS: Chronic lacunar infarct in left capsuloganglionic region There is cerebral atrophy. No evidence of space occupying lesion, hemorrhage, edema, mass effect, midline shift, extra axial collection, or hydrocephalus is noted. Basal cisterns are symmetric and normal in size and configuration. There are scattered periventricular hypodensities as can be seen with chronic microvascular ischemic changes. The puente-white matter differentiation is preserved. Visualized paranasal sinuses and mastoid air cells are well aerated. Orbital contents are within normal limits. Bony structures are intact. IMPRESSION: 1. No evidence of acute intracranial abnormality is demonstrated. 2. Chronic microvascular ischemic changes. 3. Cerebral atrophy. 4. Chronic lacunar infarct in left capsuloganglionic region Electronically signed by Willie Zamora 10-08-2024 07:40 AM Code Status & VTE Plan VTE Prophylaxis Plan VTE Prophylaxis will be ordered: Yes Supervising Physician Co-Signing Physician Notes Patient seen, laying comfortably in the room. Recurrent falls at home, fevers, poor appetite. Febrile, tachycardic, on 2L NC. COVID positive, chest xray unremarkable. Mg 1.6, WBC 7.5. CK of 974 in setting of frequent falls. Likely COVID induced weakness and falls. CK elevation likely in setting of falls. Remdesevir given high risk given comorbid conditions and age. Hold decadron for now unless increased oxygen requirements. Give gentle fluids for CK elevation. Mg replenished. I have seen and discussed the case with the collaborating advanced practitioner. I agree with the above H&P. I have reviewed and confirmed the patients medical history, the findings on physical examination, and the patients diagnosis and treatment plan with Alessandra SWAN and agree with the information documented. I spent a total of 30 minutes coordinating, documenting, and providing care for this patient excluding time spent in the performance of separately billed services. All of the aforementioned completed outside of collaborating with the assigned advanced practitioner for a full treatment plan. I have reviewed the advanced practitioner's documentation, and I agree with, and take responsibility for the plan of care
[2024-10-08] MEDS ORDERED: ALBUT/IPRATROP 3MG/0.5MG NEB 3 ML VIAL NEB PRN (10:35)
[2024-10-08] MEDS: REMDESIVIR 200 MG in SODIUM CHLORIDE 0.9% 210 ML IV STA (10:39)
--- NOTE | 2024-10-08 11:25 | Electrocardiogram Report ---
Test Reason : Blood Pressure : */* mmHG Vent. Rate : 100 BPM Atrial Rate : 100 BPM P-R Int : 180 ms QRS Dur : 90 ms QT Int : 326 ms P-R-T Axes : 28 -11 20 degrees QTcB Int : 420 ms Normal sinus rhythm Poor R wave progression, consider anterior ID vs. lead placement vs. LVH Abnormal ECG When compared with ECG of 15-Aug-2023 11:44, No significant change was found Confirmed by Mario Le ([id number]) on 10/08/2024 11:25:35 AM Referred By: Confirmed By: Mario Le
[2024-10-08] MEDS: SODIUM CHLORIDE 0.9% 1,000 ML IV SCH (12:21)
[2024-10-08] MEDS: GABAPENTIN 800 MG TAB PO SCH (12:58)
[2024-10-08] MEDS: ENOXAPARIN INJ 40 MG/0.4 ML SYR SQ SCH (12:58)
[2024-10-08] MEDS: ACETAMINOPHEN 325 MG TAB PO PRN (15:34)
[2024-10-08] MEDS: MEMANTINE HCL 10 MG TAB PO SCH (20:43)
[2024-10-08] MEDS: LORazepam 0.5 MG TAB PO SCH (20:45)
[2024-10-09 07:30] LABS: Hematocrit (blood only) 35.3 % (42.0-52.0); Hemoglobin 12.1 g/dl (14.0-18.0); Mean Corpuscular Hemoglobin 29.9 pg (25.0-34.0); Mean Corpuscular Volume 87.2 fL (80.0-100.0); Platelet Count 140 K/uL (130-400); RDW Standard Deviation 42.4 fL (36.4-46.3); Red Blood Count 4.05 M/uL (4.70-6.10); White Blood Count 5.93 K/ul (4.8-10.8)
[2024-10-09 07:44] LABS: Anion Gap 7.0 (3-11); Blood Urea Nitrogen 8.0 mg/dl (6-23); Calcium 8.0 mg/dl (8.6-10.3); Carbon Dioxide 26.0 mmol/L (21-32); Chloride 104.0 mmol/L (98-107); Creatine Kinase 818.0 U/L (30-223); Creatinine Clr Calc Pharmacy 99.8 ml/min; Glucose 110.0 mg/dl (70-99(Fasting)); Magnesium 1.9 mg/dl (1.7-2.4); Potassium 3.2 mmol/L (3.5-5.1); Sodium 137.0 mmol/L (136-145)
[2024-10-09] MEDS: ENALAPRIL MALEATE 10 MG TAB PO SCH (08:59)
[2024-10-09] MEDS: PROPRANOLOL HCL 10 MG TAB PO SCH (09:00)
[2024-10-09] MEDS: LORATADINE 10 MG TAB PO SCH (09:00)
[2024-10-09] MEDS: ASPIRIN 81 MG ECTAB PO SCH (09:00)
[2024-10-09] MEDS: REMDESIVIR 100 MG in SODIUM CHLORIDE 0.9% 230 ML IV SCH (10:42)
[2024-10-09] MEDS: ADVANCED PROBIOTIC 625 MG CAPSULE PO SCH (12:10)
[2024-10-09] MEDS: POTASSIUM CHLORIDE CRTAB 20 MEQ TABCR PO STA (12:10)
[2024-10-09] MEDS: ALUMINUM/MAGNESIUM SUSP 30 ML UDC PO PRN (14:26)
--- NOTE | 2024-10-09 15:48 | Hospitalist Progress Note ---
Date of Service October 09, 2024 Assessment & Plan (1) COVID-19 virus infection: Plan: Admit to Med/Surg Patient presenting from home for evaluation of fever, falls, and confusion. In the ED, tested + COVID 19. Was on 2L at the time of my exam however I placed the patient on room air and he remained > 94% No infiltrate on CXR Given patient's risk factors, will start Remdesivir. Discussed with patient who is agreeable. 10/09 clinically improving Mental status back to baseline Afebrile On room air Still having productive cough Check sputum culture renal function stable, liver panel pending Continue IV remdesivir day #2 Add cefuroxime 500 mg twice daily for possible bacterial infection component, given patient's severe presentation monitor closely (2) Metabolic encephalopathy: Plan: Due to COVID [address] negative for acute findings Seems to be close to baseline mental status PT/OT 10/09 mostly back to baseline mental status (3) Rhabdomyolysis: Plan: CPK 974 IVF, trend CPK level Renal functions normal. AST mildly elevated 42, other LFTs unremarkable CPK trending down 974--> 818 continue IV fluids (4) Fever: Plan: Likely due to COVID 19 infection UA negative Blood cultures pending Lyme negative Anaplasma/Babesia smear negative, PCR pending 10/09 afebrile today Cefuroxime added today as per #1 (5) History of CVA (cerebrovascular accident): Plan: Head shows evidence of chronic lacunar infarct - patient denies known prior history of CVA Continue MEDICAL RECEPTIONIST BILLER ASA, holding statin due to mild rhabdo/remdesvir (6) Hypertension: Plan: -- BP on the lower side hold Benazepril (7) Chronic back pain: (8) Peripheral nerve neurostimulator device in situ: Plan: Continue MEDICAL RECEPTIONIST BILLER duloxetine, gabapentin, oxcarbazepine (9) GERD (gastroesophageal reflux disease): Plan: PPI changed to Famotidine for now in light of possible interaction with cefuroxime DVT PROPHYLAXIS SQ Lovenox Disposition Anticipate discharge to home in 1 to 2 days plan of care discussed with patient and hi Julianne at bedside in detail and at length all questions answered they are understanding, agreeable, comfortable with the plan of care Admission and Anticipated Discharge Date Admission Date: October 08, 2024 Subjective seen resting in bed, comfortable, oriented x 3, very pleasant Julianne at the bedside visiting States he feels much better compared to admission Patient's reports mental status is mostly back to baseline Denies shortness of breath, still has productive cough no chest pain, dizziness, palpitations No abdominal pain, diarrhea resolved No nausea, appetite is better No other new symptoms Review of Systems Review of Systems: all noted and negative except for above Physical Exam Physical Exam: General- oriented x 3, not in distress, speaks in sentences with no effort or accessory muscle use Eyes- anicteric Neck- no JVD Lungs- clear breath sounds bilaterally, no rales/wheezes Heart- normal rate, regular rhythm; no murmurs Abdomen- normal bowel sounds, nondistended, soft, nontender Extremities- no pretibial edema, no calf tenderness Neuro- alert, oriented x 3; no gross focal neurologic deficits Skin- warm & dry Results & Data Results & Data Vital Signs (Past 12 Hours) Vital Signs Temp Pulse Resp BP Pulse Ox O2 Del Method 10/09/24 15:08 36.8 C 70 16 98/63 L 92 Room Air 10/09/24 08:00 Room Air 10/09/24 08:00 36.8 C 72 18 115/88 97 Room Air all noted and reviewed including below
[2024-10-09] MEDS: TRIAZOLAM 0.25 MG PO SCH (20:32)
[2024-10-10 07:13] LABS: Hematocrit (blood only) 36.3 % (42.0-52.0); Hemoglobin 12.0 g/dl (14.0-18.0); Immature Granulocytes # (auto) 0.01 K/uL (0.01-0.20); Immature Granulocytes % (auto) 0.2 %; Mean Corpuscular Hemoglobin 29.2 pg (25.0-34.0); Mean Corpuscular Volume 88.3 fL (80.0-100.0); Platelet Count 142 K/uL (130-400); RDW Standard Deviation 42.4 fL (36.4-46.3); Red Blood Count 4.11 M/uL (4.70-6.10); White Blood Count 4.95 K/ul (4.8-10.8)
[2024-10-10 07:43] LABS: Alanine Aminotransferase 32.0 U/L (7-52); Albumin Globulin Ratio 1.6 (0.9-2); Alkaline Phosphatase 41.0 U/L (34-104); Anion Gap 6.0 (3-11); Bilirubin,Total 0.3 mg/dl (0.2-1.0); Blood Urea Nitrogen 9.0 mg/dl (6-23); Calcium 8.2 mg/dl (8.6-10.3); Carbon Dioxide 26.0 mmol/L (21-32); Chloride 107.0 mmol/L (98-107); Creatine Kinase 808.0 U/L (30-223); Creatinine Clr Calc Pharmacy 120.4 ml/min; Globulin 2.1 gm/dl (2.5-4.0); Glucose 98.0 mg/dl (70-99(Fasting)); Potassium 3.6 mmol/L (3.5-5.1); Sodium 139.0 mmol/L (136-145); Total Protein 5.4 gm/dl (6.0-8.3)
[2024-10-10 07:59] VITALS: RESP 16
--- NOTE | 2024-10-10 16:23 | Hospitalist Progress Note ---
Date of Service October 10, 2024 Assessment & Plan (1) COVID-19 virus infection: (2) Metabolic encephalopathy: (3) Rhabdomyolysis: (4) Fever: (5) History of CVA (cerebrovascular accident): (6) Hypertension: (7) Chronic back pain: (8) Peripheral nerve neurostimulator device in situ: (9) GERD (gastroesophageal reflux disease): Plan Mr. Peres is a 73 year old male with PMH HTN, chronic back pain with neurostimulator in place, GERD, anxiety, depression, essential tremor, and other problems listed below who presented to ED for fever and admitted for COVID infection and rhabdomyolysis Patient briefly with hypoxia, but resolved.Patient started on remdesivir with noted improvement. #COVID infection #Acute encephalopathy 2/2 above Mental status back to baseline Afebrile On room air sputum cx with normal stef Conpleted IV remdesivir day #3 continue cefuroxime 500 mg twice daily for possible bacterial infection component, given patient's severe presentation monitor closely #Rhabdomyolysis: CPK 974, downtrending IVF, trend CPK level Renal functions normal. 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, holding statin due to mild rhabdo/remdesvir #Hypertension: Plan: -- BP on the lower side hold Benazepril # Chronic back pain: #Peripheral nerve neurostimulator device in situ: Continue TRANSCRIPTION MANAGER duloxetine, gabapentin, oxcarbazepine # GERD (gastroesophageal reflux disease): PPI changed to Famotidine for now in light of possible interaction with cefuroxime DVT PROPHYLAXIS SQ Lovenox Disposition Anticipate discharge to home tomorrow Admission and Anticipated Discharge Date Admission Date: October 08, 2024 Results & Data Results & Data Vital Signs (Past 12 Hours) Vital Signs Temp Pulse Resp BP Pulse Ox O2 Del Method 10/10/24 15:30 36.7 C 67 16 156/75 H 94 Room Air 10/10/24 07:58 36.7 C 68 16 133/74 91 Room Air 10/10/24 07:45 Room Air Laboratory Results Short CBC 10/10/24 Range/Units 05:28 WBC 4.95 (4.8-10.8) K/ul Hgb 12.0 L (14.0-18.0) g/dl Hct 36.3 L (42.0-52.0) % Plt Count 142 (130-400) K/uL BMP 10/10/24 05:28 Sodium 139 Potassium 3.6 Chloride 107 Carbon Dioxide 26 BUN 9 Creatinine 0.73 Glucose 98 Calcium 8.2 L Cardiac Enzymes 10/10/24 Range/Units 05:28 Total Creatine Kinase 808 H (30-223) U/L Liver Function 10/10/24 Range/Units 05:28 Total Bilirubin 0.3 (0.2-1.0) mg/dl AST 44 H (13-39) U/L ALT 32 (7-52) U/L Alkaline Phosphatase 41 (34-104) U/L Albumin 3.3 L (3.4-5.0) gm/dl Medications Administered Home Medications Medication Instructions Recorded Confirmed Last Taken aspirin 81 mg tablet,delayed 81 mg PO DAILY 10/01/18 10/08/24 Unknown release (Adult Low Dose Aspirin) cholecalciferol (vitamin D3) 50 2,000 units PO DAILY 10/01/18 10/08/24 12/30/19 mcg (2,000 unit) capsule gabapentin 800 mg tablet 800 mg PO QID 10/01/18 10/08/24 Unknown atorvastatin 40 mg tablet 40 mg PO DAILY 12/30/19 10/08/24 Unknown benazepril 20 mg tablet 20 mg PO DAILY 12/30/19 10/08/24 12/30/19 loratadine 10 mg tablet (Claritin) 10 mg PO DAILY 12/30/19 10/08/24 12/30/19 omeprazole 40 mg capsule,delayed 40 mg PO BID 12/30/19 10/08/24 12/30/19 release memantine 10 mg tablet 10 mg PO BID 12/06/21 10/08/24 Unknown triazolam 0.25 mg tablet 0.5 mg PO UD PRN Sleep 01/06/23 10/08/24 Unknown duloxetine 60 mg capsule,delayed 60 mg PO DAILY 05/29/23 10/08/24 Unknown release (Cymbalta) fluticasone propionate 50 1 spray intranasal DIRECTED 10/08/24 10/08/24 Unknown mcg/actuation nasal spray,suspension imiquimod 5 % topical cream packet 1 applic topical UD 10/08/24 10/08/24 Unknown oxcarbazepine 300 mg tablet 300 mg PO BID 10/08/24 10/08/24 Unknown propranolol 10 mg tablet 10 mg PO DAILY 10/08/24 10/08/24 Unknown Active Medications Generic Name Dose Route Start Last Admin Trade Name Freq PRN Reason Stop Dose Admin Acetaminophen 650 mg 10/08/24 12:04 10/09/24 05:28 Acetaminophen 325 Mg Tab PO 11/07/24 12:03 650 mg Q4H PRN Administration pain/fever Al Hydrox/Mg Hydrox/Simethicone 30 ml 10/09/24 13:20 10/09/24 14:26 Aluminum/Magnesium Susp 30 Ml Udc PO 11/08/24 13:19 30 ml Q6H PRN Administration dyspepsia Aspirin 81 mg 10/09/24 09:00 10/10/24 09:25 Aspirin 81 Mg Ectab PO 11/08/24 08:59 81 mg DAILY ANA Administration Cefuroxime Axetil 500 mg 10/09/24 18:00 10/10/24 09:26 Cefuroxime Axetil 250 Mg Tablet PO 10/14/24 17:59 500 mg BIDM ANA Administration Duloxetine HCl 60 mg 10/09/24 09:00 10/10/24 09:25 Duloxetine Hcl 60 Mg Cap PO 11/08/24 08:59 60 mg DAILY ANA Administration Enalapril Maleate 10 mg 10/09/24 09:00 10/09/24 08:59 Enalapril Maleate 10 Mg Tab PO 11/08/24 08:59 10 mg DAILY ANA Administration Enoxaparin Sodium 40 mg 10/08/24 12:04 10/10/24 12:49 Enoxaparin Inj 40 Mg/0.4 Ml Syr SQ 11/07/24 12:03 40 mg Q24H ANA Administration Gabapentin 800 mg 10/08/24 13:00 10/10/24 12:49 Gabapentin 800 Mg Tab PO 11/07/24 12:59 800 mg QID ANA Administration Sodium Chloride 1,000 mls @ 100 mls/hr 10/08/24 12:04 10/10/24 14:14 Nss IV 10/11/24 12:03 80 mls/hr .Q10H ANA Administration Lactobacillus Acidophilus 1,250 mg 10/09/24 09:00 10/10/24 09:26 Advanced Probiotic 625 Mg Capsule PO 11/08/24 08:59 1,250 mg DAILY ANA Administration Loratadine 10 mg 10/09/24 09:00 10/10/24 09:25 Loratadine 10 Mg Tab PO 11/08/24 08:59 10 mg DAILY ANA Administration Memantine 10 mg 10/08/24 21:00 10/10/24 09:26 Memantine Hcl 10 Mg Tab PO 11/07/24 20:59 10 mg BID ANA Administration Oxcarbazepine 300 mg 10/08/24 21:00 10/10/24 09:26 Oxcarbazepine 150 Mg Tablet PO 11/07/24 20:59 300 mg BID ANA Administration Pantoprazole Sodium 40 mg 10/08/24 21:00 10/10/24 09:26 Pantoprazole 40 Mg Tab PO 11/07/24 20:59 40 mg BID ANA Administration Propranolol HCl 10 mg 10/09/24 09:00 10/10/24 09:25 Propranolol Hcl 10 Mg Tab PO 11/08/24 08:59 10 mg DAILY ANA Administration Triazolam 0.5 mg 10/09/24 21:00 10/09/24 20:32 Pt Own Med - Triazolam 0.25 Mg Tab PO 11/08/24 20:59 0.5 mg HS ANA Administration
[2024-10-11 06:26] LABS: Hematocrit (blood only) 39.6 % (42.0-52.0); Hemoglobin 13.2 g/dl (14.0-18.0); Mean Corpuscular Hemoglobin 29.3 pg (25.0-34.0); Mean Corpuscular Volume 87.8 fL (80.0-100.0); Platelet Count 149 K/uL (130-400); RDW Standard Deviation 42.2 fL (36.4-46.3); Red Blood Count 4.51 M/uL (4.70-6.10); White Blood Count 6.33 K/ul (4.8-10.8)
[2024-10-11 07:37] LABS: Anion Gap 9.0 (3-11); Bilirubin,Total 0.4 mg/dl (0.2-1.0); Calcium 8.6 mg/dl (8.6-10.3); Carbon Dioxide 25.0 mmol/L (21-32); Chloride 106.0 mmol/L (98-107); Magnesium 1.9 mg/dl (1.7-2.4); Potassium 3.8 mmol/L (3.5-5.1); Sodium 140.0 mmol/L (136-145)
[2024-10-11 07:43] LABS: Alanine Aminotransferase 38.0 U/L (7-52); Albumin Globulin Ratio 1.5 (0.9-2); Alkaline Phosphatase 46.0 U/L (34-104); Blood Urea Nitrogen 9.0 mg/dl (6-23); Creatinine Clr Calc Pharmacy 112.6 ml/min; Globulin 2.4 gm/dl (2.5-4.0); Glucose 82.0 mg/dl (70-99(Fasting)); Total Protein 5.9 gm/dl (6.0-8.3)
[2024-10-11 08:10] VITALS: BP 138/81; PULSE 69; TEMP 98.2; O2SAT 94
--- NOTE | 2024-10-11 09:18 | Discharge Summary ---
Discharge Summary Date of Service October 11, 2024 Principal Dx & Hospital Course #1 = Principal Diagnosis (1) COVID-19 virus infection: (2) Metabolic encephalopathy: (3) Rhabdomyolysis: (4) Fever: (5) History of CVA (cerebrovascular accident): (6) Hypertension: (7) Chronic back pain: (8) Peripheral nerve neurostimulator device in situ: (9) GERD (gastroesophageal reflux disease): Plan Mr. Peres is a 73 year old male with PMH HTN, chronic back pain with neurostimulator in place, GERD, anxiety, depression, essential tremor, and other problems listed below who presented to ED for fever and admitted for COVID infection and rhabdomyolysis Patient briefly with hypoxia, but resolved.Patient started on remdesivir with noted improvement. Patient's lab continued to remain stable and patient was feeling strong and independent. Patient discharged on 3 more days of po abx. On day of discharge, patient was ambulating without difficulty, eating well, and denying any new concerns. #COVID infection #Acute encephalopathy 2/2 above Mental status back to baseline Afebrile On room air sputum cx with normal stef Conpleted IV remdesivir day #3 continue cefuroxime 500 mg twice daily x3days #Rhabdomyolysis: *resolved CPK 974, downtrending IVF, trend CPK level Renal functions normal. 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 ASA, holding statin due to mild rhabdo/remdesvir #Hypertension: -- BP on the lower side resume benazepril # Chronic back pain: #Peripheral nerve neurostimulator device in situ: Continue CONDUIT MECHANIC duloxetine, gabapentin, oxcarbazepine Notes For Next Care Provider Medication Changes From Visit continue cefuroxime 300mg bid x 3 more days Admission HPI Per Admitting Provider 73 year old male with PMH HTN, chronic back pain with neurostimulator in place, GERD, anxiety, depression, essential tremor, and other problems listed below who presents to the ED for evaluation of fever, confusion, and recurrent falls. Patient's is at the bedside who has history. Patient started to develop symptoms a couple of days ago. Reports cold-like symptoms with nasal congestion, sore throat, productive cough. reports patient has been agitated and confused and very weak and has had several falls. EMS was called at this morning and patient was found to be febrile. Patient was brought to the ED for further evaluation. Patient reports a poor appetite however denies abdominal pain, nausea, vomiting, diarrhea. No urinary symptoms. Denies chest pain, shortness of breath, lightheadedness, dizziness, diaphoresis, syncopal event. No recent travel or sick contacts. In the ED, patient is febrile at 38.1 and tested positive for COVID-19. CPK 974. Patient was on 2 L at the time my exam however I placed him on room air and he remained > 94% on room air. Patient was given cefepime, doxycycline, magnesium replacement, IVF, IV Zofran. Admission Exam Per Admitting Provider Constitutional: WD/WN, vitals as above + ill appearing; no acute distress Respiratory: normal respiratory effort, lungs clear to auscultation Cardiovascular: Rate/Rhythm: regular rate and regular rhythm Vessels: normal peripheral pulses Extremities: no edema Gastrointestinal (Abdomen): Percussion/Palpation: abdomen soft; abdomen nontender Skin: no rashes, warm and dry Neurologic: no focal motor deficits Psychiatric: A+Ox3, euthymic affect Discharge Exam Constitutional WD/WN, vitals as above Respiratory normal respiratory effort, lungs clear to auscultation Cardiovascular RRR, no murmur, no edema Gastrointestinal (Abdomen) normal bowel sounds, soft, nontender, no hepatosplenomegaly Updated Medication List Medication Instructions Recorded Confirmed Type aspirin 81 mg tablet,delayed 81 mg PO DAILY 10/01/18 10/08/24 History release (Adult Low Dose Aspirin) cholecalciferol (vitamin D3) 50 2,000 units PO DAILY 10/01/18 10/08/24 History mcg (2,000 unit) capsule gabapentin 800 mg tablet 800 mg PO QID 10/01/18 10/08/24 History atorvastatin 40 mg tablet 40 mg PO DAILY 12/30/19 10/08/24 History benazepril 20 mg tablet 20 mg PO DAILY 12/30/19 10/08/24 History loratadine 10 mg tablet (Claritin) 10 mg PO DAILY 12/30/19 10/08/24 History omeprazole 40 mg capsule,delayed 40 mg PO BID 12/30/19 10/08/24 History release memantine 10 mg tablet 10 mg PO BID 12/06/21 10/08/24 History triazolam 0.25 mg tablet 0.5 mg PO UD PRN Sleep 01/06/23 10/08/24 History duloxetine 60 mg capsule,delayed 60 mg PO DAILY 05/29/23 10/08/24 History release (Cymbalta) fluticasone propionate 50 1 spray intranasal DIRECTED 10/08/24 10/08/24 History mcg/actuation nasal spray,suspension imiquimod 5 % topical cream packet 1 applic topical UD 10/08/24 10/08/24 History oxcarbazepine 300 mg tablet 300 mg PO BID 10/08/24 10/08/24 History propranolol 10 mg tablet 10 mg PO DAILY 10/08/24 10/08/24 History cefuroxime axetil 250 mg tablet 500 mg (2 x 250 mg) PO BIDM 3 days 10/11/24 Rx #12 tabs Hospital Stay Data Consultations 10/08/24 08:14 ED Decision to Admit Stat Diagnostic Imagining Performed 10/08/24 05:23 CT abd pelvis IV con only Stat CT cervical spine wo con Stat CT chest diagnostic w con Stat CT head/brain wo con Stat Pending Results Patient Have Any Pending Studies at Discharge: No Discharge Instructions Given to Patient (Per Discharging Provider) You were admitted for COVID infection and a process called rhabdomyolysis. You improved with remdesivir to help shorten duration of COVID symptoms and you were started on antibiotics. You will complete 3 more days of the following: Cefuroxime 500mg two times a day, your next dose is this evening. You will complete all tablets Total Time Total Time Spent Total Time Spent (In Minutes): 45
[2024-10-11] MEDS: PNEUMOCOCCAL VACCINE (PCV20) 20-VAL CONJ-DIP CRM/PF 0.5 ML SYR IM ONE (09:41)
== END 2024-10-11 10:54 | disposition home or self-care (01) | DRG 177 ==
LOC: ED 05:21 → EDINP 09:22 → SUATTDRO 09:22 → 3E 12:04